=== PATIENT | female | born 1990 | race African-American/Black ===

== ENCOUNTER 2019-02-11 18:01 | Emergency (ER) | payer OTHER ==
[2019-02-11 18:05] VITALS: BP 118/68; PULSE 87; TEMP 98.6; BMI 29.1
--- NOTE | 2019-02-11 18:27 | PDOC ---
History of Present Illness - General Chief Complaint: Sore Throat Stated Complaint: SORETHROAT SYMPTOMS Time Seen by Provider: 02/11/19 18:20 History Source: Patient Exam Limitations: No Limitations - History of Present Illness Initial Comments: 02/11/19 18:27 4 days ago onset of red and painful tonsils. Has been using ibuprofen and TheraFlu with some relief. 2 weeks ago children erythema or treated for influenza. Was seen by her PMD earlier this week and was given Robitussin and conservative measures. No testing was completed. Patient states onset of fevers with mild cough started on Wednesday, equaling 6 days ago. 02/11/19 18:42 Timing/Duration: reports: getting worse Severity: reports: mild, moderate Associated Symptoms: reports: cough, fever/chills, nasal congestion, nasal drainage, sore throat Past History - Travel Traveled outside of the country in the last 30 days: No Close contact w/someone who was outside of country & ill: No - Past Medical History Allergies/Adverse Reactions: Allergies Allergy/AdvReac Type Severity Reaction Status Date / Time No Known Allergies Allergy Verified 02/11/19 18:05 Home Medications: Ambulatory Orders Ferrous Sulfate [Feosol] 325 mg PO TID 07/10/13 Pnv No.95/Ferrous Fum/Folic AC [ Tablet] 1 each PO 07/10/13 Acetaminophen [Tylenol .Regular Strength -] 650 mg PO Q3H PRN #1 tablet Ibuprofen [Motrin -] 600 mg PO Q4H PRN #1 tablet 07/11/13 Asthma: No Cancer: No Cardiac Disorders: No COPD: No Diabetes: No HTN: No Seizures: No Thyroid Disease: No - Suicide/Smoking/Psychosocial Hx Smoking History: Never smoked Have you smoked in the past 12 months: No Hx Alcohol Use: No Drug/Substance Use Hx: No Hx Substance Use Treatment: No Review of Systems - Review of Systems Able to Perform ROS?: Yes Is the patient limited [place] proficient: Yes Constitutional: Yes: Symptoms Reported, See HPI, Chills, Fever, Loss of Appetite , Malaise HEENTM: Yes: Symptoms Reported, See HPI, Nose Congestion, Throat Pain, Difficulty Swallowing Respiratory: Yes: Symptoms reported, See HPI, Cough (nonproductive) Integumentary: No: Symptoms Reported Neurological: Yes: Symptoms reported, See HPI, Headache All Other Systems: Reviewed and Negative *Physical Exam - Vital Signs Last Vital Signs Temp Pulse Resp BP Pulse Ox 98.6 F 87 18 118/68 98 02/11/19 18:03 02/11/19 18:03 02/11/19 18:03 02/11/19 18:03 02/11/19 18:03 - Physical Exam General Appearance: Yes: Nourished, Appropriately Dressed, Apparent Distress, Mild Distress HEENT: positive: JIMMY, Normal ENT Inspection, TMs Normal, Pharynx Normal, Tonsillar Erythema (posterior sinus drainage without true exudate noted), Nasal Congestion, Rhinorrhea. negative: Tonsillar Exudate Neck: positive: Tender, Supple, Lymphadenopathy (R), Lymphadenopathy (L) Respiratory/Chest: positive: Lungs Clear Gastrointestinal/Abdominal: positive: Soft. 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 *DC/Admit/Observation/Transfer Diagnosis at time of Disposition: Strep pharyngitis - Discharge Dispostion Disposition: HOME Condition at time of disposition: Stable Decision to Admit order: No - Referrals Referrals: Shawn Munguia [Primary Care Provider] - - Patient Instructions Printed Discharge Instructions: DI for Strep Throat Additional Instructions: Rest, drink lots of fluids: Teas, water, soups Eat cold things: Ice cream, ice pops, ice chips Saltwater gargles Steamy showers/seem to face break up mucus Avoid contact with others until fevers and pain resolved Lots of handwashing and good hygiene, this is contagious You have been treated with Bicillin LA 1.2 million units injection which is a one-time treatment for strep pharyngitis. You will not need to take any further antibiotics. Tylenol or Motrin for fever and pain Followup with private physician in one to 2 days as needed if not improving Return to emergency department for worsened symptoms, fevers, dehydration - Post Discharge Activity Forms/Work/School Notes: Back to Work
[2019-02-11] MEDS ORDERED: IBUPROFEN 400 MG TABLET (FP) PO ONE ×2 (18:39→18:43)
[2019-02-11] MEDS ORDERED: PENICILLIN G BENZATHINE 1,200,000 UNIT/2 ML PFS IM ONE (19:17)
[2019-02-11] MEDS ORDERED: PENICILLIN G BENZATHINE 2,400,000 UNIT/4 ML PFS ONE (19:24)
== END 2019-02-11 19:34 | disposition home or self-care (01) ==
LOC: JERFT 18:01
DX: J02.0 Streptococcal pharyngitis (principal); B95.0 Streptococcus, group A, as the cause of diseases classified elsewhere
CPT/HCPCS: 87880; 96372; 99281-25

== ENCOUNTER 2020-10-12 17:25 | Inpatient (IN) | payer OTHER ==
[2020-10-12 18:19] VITALS: BMI 35.6
[2020-10-12 18:50] LABS: INR 1.05 (0.83-1.09); PROTHROMBIN TIME (PATIENT) 12.9 SEC (9.7-13.0)
[2020-10-12 18:53] LABS: ACTIVATED PTT 26.6 SECONDS (25.2-36.5)
[2020-10-12 18:55] LABS: BASO % 0.4 % (0-2.0); EOS % 4.1 % (0-4.5); HEMATOCRIT 32.6 % (32.4-45.2); HEMOGLOBIN 10.5 GM/dL (10.7-15.3); LYMPH % 20.8 % (8-40); MCH 24.8 pg (25.7-33.7); MCHC 32.2 g/dl (32.0-36.0); MEAN PLT VOLUME 11.7 fl (7.5-11.1); MONO % 9.2 % (3.8-10.2); NEUT % 65.5 % (42.8-82.8); PLATELET COUNT 75 K/MM3 (134-434); RBC 4.24 M/mm3 (3.60-5.2); RDW 15.1 % (11.6-15.6); WHITE BLOOD COUNT 5.3 K/mm3 (4.0-10.0)
[2020-10-12] MEDS ORDERED: DINOPROSTONE 10 MG VAGINAL SUPPOSITORY VG ONE (19:33)
[2020-10-12 19:48] LABS: CALCIUM 8.5 mg/dL (8.5-10.1)
[2020-10-12 19:49] LABS: ALBUMIN 2.6 g/dl (3.4-5.0); BLOOD UREA NITROGEN 9.7 mg/dL (7-18)
[2020-10-12 19:51] LABS: URIC ACID 4.1 mg/dL (2.6-7.2)
[2020-10-12 19:52] LABS: CREATININE 0.6 mg/dL (0.55-1.3)
[2020-10-12 19:53] LABS: BILIRUBIN,TOTAL 0.2 mg/dL (0.2-1)
[2020-10-13] MEDS ORDERED: OXYTOCIN 20 UNITS in 0.9% NS 20 UNIT/1,000 ML INFUS.BAG IV ONE (09:09)
[2020-10-13] MEDS ORDERED: AMPICILLIN SODIUM 2 GM VIAL ONE (09:09)
[2020-10-13] MEDS ORDERED: OXYTOCIN 30 UNITS in 0.9% NS 30 UNIT/500 ML INFUS.BAG IVPB ONE (09:09)
[2020-10-13] MEDS ORDERED: AMPICILLIN - 2 GM in SODIUM CHLORIDE 100 ML IVPB ONE (09:27)
[2020-10-13] MEDS ORDERED: OXYTOCIN 30 UNITS in 0.9% NS 30 UNIT/500 ML INFUS.BAG IVPB SCH (09:30)
[2020-10-13] MEDS ORDERED: LACTATED RINGERS SOLUTION 1,000 ML/1,000 ML INFUS.BAG IV SCH (09:45)
[2020-10-13] MEDS ORDERED: AMPICILLIN SODIUM 1 GM VIAL ONE (12:12)
[2020-10-13] MEDS ORDERED: AMPICILLIN - 1 GM in SODIUM CHLORIDE 100 ML IVPB SCH (12:30)
[2020-10-13] MEDS: OXYTOCIN 20 UNITS in 0.9% NS 20 UNIT/1,000 ML INFUS.BAG IV SCH ×2 (13:17→14:30)
[2020-10-13] MEDS ORDERED: METHYLERGONOVINE MALEATE 0.2 MG/1 ML AMP IM ONE (13:40)
[2020-10-13] MEDS ORDERED: METHYLERGONOVINE MALEATE 0.2 MG/1 ML AMP IM PRN (13:40)
[2020-10-13 13:52] LABS: CORD HCO3 26.2 mmHg (20-29); CORD PCO2 54.3 mmHg (30-78); CORD pH 7.302 (7.14-7.44)
[2020-10-13] MEDS ORDERED: BENZOCAINE 20% 57 GM BOTTLE TP PRN (13:52)
[2020-10-13] MEDS ORDERED: BENZOCAINE 28 GM HEMORRHOIDAL OINTMENT TP PRN (13:52)
[2020-10-13] MEDS ORDERED: BISACODYL 10 MG SUPP.RECT RC PRN (13:52)
[2020-10-13] MEDS ORDERED: WITCH HAZEL 50% (TUCKS) 40 PAD/JAR PAD TP PRN (13:52)
[2020-10-13] MEDS ORDERED: ACETAMINOPHEN 325 MG TABLET (FP) PO PRN (13:52)
[2020-10-13 13:54] LABS: CORD HCO3 21.1 mmHg (20-29); CORD PCO2 38.6 mmHg (30-78); CORD pH 7.356 (7.14-7.44)
[2020-10-13] MEDS: IBUPROFEN 600 MG TABLET (FP) PO PRN (18:34)
[2020-10-14] MEDS ORDERED: DIPHTH,PERTUSS(ACELL),TET 0.5 ML DISP.SYRIN IM ONE (10:00)
[2020-10-14] MEDS ORDERED: FLU VACCINE (FLULAVAL) PF 60 MCG/0.5 ML SYRINGE 2020-2021 IM ONE (10:00)
[2020-10-14 10:32] LABS: BASO % 0.2 % (0-2.0); EOS % 4.2 % (0-4.5); HEMATOCRIT 34.4 % (32.4-45.2); HEMOGLOBIN 11.1 GM/dL (10.7-15.3); LYMPH % 11.9 % (8-40); MCH 24.8 pg (25.7-33.7); MCHC 32.3 g/dl (32.0-36.0); MEAN CELL VOLUME 76.9 fl (80-96); MEAN PLT VOLUME 11.5 fl (7.5-11.1); MONO % 6.4 % (3.8-10.2); NEUT % 77.3 % (42.8-82.8); PLATELET COUNT 80 K/MM3 (134-434); RBC 4.47 M/mm3 (3.60-5.2); RDW 15.4 % (11.6-15.6); WHITE BLOOD COUNT 8.8 K/mm3 (4.0-10.0)
[2020-10-14] MEDS: DOCUSATE SODIUM 100 MG CAPSULE (FP) PO SCH (11:34)
[2020-10-14] MEDS: PRENATAL VITAMINS W/ FOLIC ACID TABLET (FP) PO SCH (11:34)
[2020-10-14] MEDS ORDERED: SENNOSIDES/DOCUSATE COMBO (SENNA PLUS) TABLET (UD) PO PRN (22:00)
[2020-10-14] MEDS: IBUPROFEN 600 MG TABLET (FP) PO PRN (22:39)
[2020-10-15 09:26] VITALS: BP 123/75; PULSE 89; TEMP 98.1
[2020-10-15] MEDS: PRENATAL VITAMINS W/ FOLIC ACID TABLET (FP) PO SCH (09:36)
[2020-10-15] MEDS: DOCUSATE SODIUM 100 MG CAPSULE (FP) PO SCH (09:36)
== END 2020-10-15 14:25 | disposition home or self-care (01) | DRG 560 ==
LOC: JLDR 17:25 → J3W 10-13 15:23
PROVIDERS: ADMIT Obstetrics & Gynecology; ATTEND Obstetrics & Gynecology
PROC: 3E0P7VZ Introduction of Hormone into Female Reproductive, Via Natural or Artificial Opening (ICD-10-PCS; 2020-10-12)
PROC: 10907ZC Drainage of Amniotic Fluid, Therapeutic from Products of Conception, Via Natural or Artificial Opening (ICD-10-PCS; principal; 2020-10-13)
PROC: 10E0XZZ Delivery of Products of Conception, External Approach (ICD-10-PCS; 2020-10-13)
DX: O99.12 Other diseases of the blood and blood-forming organs and certain disorders involving the immune mechanism complicating childbirth (principal); D69.6 Thrombocytopenia, unspecified; Z3A.39 39 weeks gestation of pregnancy; Z37.0 Single live birth
CPT/HCPCS: 36415; 36600; 59409; 80053; 82803; 84550; 85025; 85610; 85730; 86780; 86850; 86900; 86901; 88307-TC; 90715; G0008; Q2036